=== PATIENT | male | born 1995 | race Caucasian/White ===

== ENCOUNTER 2019-10-04 14:13 | Emergency (ER) | payer OTHER, SELFPAY ==
[2019-10-04 14:15] VITALS: BP 138/78; PULSE 62; RESP 18; TEMP 36.6; O2SAT 97; BMI 24.8
--- NOTE | 2019-10-04 16:09 | ED.DEP ---
ED Disposition - Plan for ED Patient: Instructions: ED Laceration All Closures Referrals: Care Physician,No Primary [Primary Care Provider] -
--- NOTE | 2019-10-04 16:11 | ED.VISSUMM ---
- ER Visit Summary Date of Service: 10/04/19 Chief Complaint: Laceration History of Present Illness: The patient is a 23 M with laceration left calf. Patient states he accidentally cut his left calf with a box sealing machine feeder just prior to arrival. No other injuries. Tetanus is up-to-date. Physical Examination: Vitals are stable. Patient is afebrile. Alert no acute distress. HEENT exam is unremarkable. Neck is supple. Lungs are clear and equal bilaterally. Heart is regular rate and rhythm. Extremities 2.5 cm laceration medial left calf. Neurovascular intact distally Skin is warm and dry. No focal neurologic deficit. Remainder of exam is unremarkable. Emergency Department Course and Treatment: Wound was irrigated. Anesthetized with lidocaine. 4, 5-0 simple sutures were placed. Advised wound care instructions. Advised to return for worsening complaints. Disposition: Discharge home Impression: Laceration left lower extremity, laceration repair This note was generated with [employer] dictation software. It may contain incorrect words, spelling, and punctuation that were not noted in review of the chart prior to signing ED Disposition - Plan for ED Patient: Instructions: ED Laceration All Closures Referrals: Care Physician,No Primary [Primary Care Provider] -
== END 2019-10-04 16:36 | disposition home or self-care (01) ==
LOC: ED 15:13
PROVIDERS: Emergency Provider Emergency Medicine
DX: S81.812A Laceration without foreign body, left lower leg, initial encounter (principal); W26.8XXA Contact with other sharp object(s), not elsewhere classified, initial encounter; Y93.89 Activity, other specified; Y92.89 Other specified places as the place of occurrence of the external cause; Y99.8 Other external cause status
CPT/HCPCS: 12001; 99284